=== PATIENT | female | born 1970 | race Caucasian/White ===

== ENCOUNTER 2018-04-30 13:20 | Emergency (ER) | payer MEDICARE, OTHER ==
[~2018-04-30] VITALS: Ht 157.5 cm; Wt 74.0 kg
[2018-04-30 14:02] LABS: BASOPHILS % (AUTO) 0.1 % (0-1); EOSINOPHILS % (AUTO) 0 % (0-6); HEMATOCRIT 45.3 % (35.0-45.0); HEMOGLOBIN 15.4 g/dl (12.0-16.0); LYMPHOCYTES # (AUTO) 1.3 X10'3 (1.1-4.8); LYMPHOCYTES % (AUTO) 9.6 % (21-51); MEAN CORPUSCULAR HEMOGLOBIN 31.1 PG (27.0-31.0); MEAN CORPUSCULAR VOLUME 91.5 FL (78-98); MEAN PLATELET VOLUME 7.7 FL (7.4-10.4); MONOCYTES # (AUTO) 0.2 X10'3 (0-0.9); MONOCYTES % (AUTO) 1.2 % (2-12); NEUTROPHILS # (AUTO) 11.9 X10'3 (1.8-7.7); NEUTROPHILS % (AUTO) 89.1 % (42-75); PLATELET COUNT 482 X10'3 (140-440); RED BLOOD COUNT 4.95 X10'6 (4.20-5.60); RED CELL DISTRIBUTION WIDTH 13.1 % (11.5-14.5); WHITE BLOOD COUNT 13.3 X10'3 (4.5-11.0)
[2018-04-30 14:09] LABS: ALANINE AMINOTRANSFERASE 46 U/L (12-78); ALBUMIN 4.7 G/DL (3.4-5.0); ALBUMIN/GLOBULIN RATIO 1.1 (1.1-1.5); ALKALINE PHOSPHATASE 57 IU/L (46-116); ANION GAP 20 (8-16); ASPARTATE AMINO TRANSFERASE 16 U/L (10-37); BLOOD UREA NITROGEN 11 MG/DL (7-18); BUN/CREATININE RATIO 9.9 (6.6-38.0); CALCIUM 9.6 MG/DL (8.5-10.1); CHLORIDE 102 MMOL/L (99-107); CREATININE 1.11 MG/DL (0.40-0.90); GLUCOSE 141 MG/DL (70-104); LIPASE 94 U/L (73-393); POTASSIUM 3.9 MMOL/L (3.5-5.1); PROTHROMBIN TIME 10.5 SECONDS (9.0-12.0); SODIUM 140 MMOL/L (135-145); TOTAL CARBON DIOXIDE 17.6 MMOL/L (24-32); TOTAL PROTEIN 8.8 G/DL (6.4-8.2); eGFR 52 ML/MIN
[2018-04-30] MEDS ORDERED: normal saline 1000ML IV soln IVB ONE (14:15)
[2018-04-30] MEDS ORDERED: proCHLORperazine 10 MG/2 ml inj IV ONE (14:15)
--- NOTE | 2018-04-30 14:35 | NUR ---
assumed care from sweetie BRANDON for lunch break
--- NOTE | 2018-04-30 14:50 | NUR ---
PT REPORTS HER HOME PO COMPAZINE DID NOT WORK, PT WAS AGREEABLE TO TAKE IV COMPAZINE, PT REPORTS 8/10 BACK PAIN, OMI LEIGH INFORMED, ORDERS TO FOLLOW.
[2018-04-30] MEDS ORDERED: morphine 4 MG/ML inj SYRINge IV ONE (15:05)
[2018-04-30] MEDS ORDERED: metoclopramide 5 mg/ml inj IV ONE (15:05)
--- NOTE | 2018-04-30 15:10 | NUR ---
PT IS SLEEPING, NO S/S OF DISTRESS OR DISCOMFORT, RESPIRATIONS SPONTENOUS, EVEN AND UNLABORED.
[2018-04-30] MEDS ORDERED: ONDA4TAB6 PO (15:24)
[2018-04-30] MEDS ORDERED: PROC25SU31 RC (15:24)
[2018-04-30 15:38] VITALS: BP 126/78
[2018-04-30 15:59] LABS: CLARITY,URINE CLEAR (Clear); COLOR,URINE YELLOW (Yellow); GLUCOSE, URINE NEGATIVE (Neg); KETONES,URINE >=80 mg/dl (Neg); LEUKOCYTE ESTERASE ,URINE NEGATIVE (Neg); NITRITES, URINE NEGATIVE (Neg); OCCULT BLOOD,URINE SMALL (Neg); PROTEIN,URINE 30 mg/dl (Neg); UROBILINOGEN,URINE 0.2 E.U/dL (0.2-1.0)
[2018-04-30 16:00] LABS: UA COLLECTION TYPE CLN CATCH MIDSTREAM; URINE HCG NEGATIVE (NEG)
[2018-04-30 16:13] LABS: BACTERIA,URINE FEW /HPF (Neg); MUCUS STRANDS FEW /LPF (Neg); SQUAMOUS EPITHELIAL CELL,UR FEW /LPF (FEW); WBC,URINE 0-4 /HPF (0-4)
== END 2018-04-30 15:47 | disposition home or self-care (01) ==
LOC: ER 13:21
DX: E86.0 Dehydration (principal); R11.2 Nausea with vomiting, unspecified; K21.9 Gastro-esophageal reflux disease without esophagitis; Z90.49 Acquired absence of other specified parts of digestive tract; Z88.2 Allergy status to sulfonamides; Z79.899 Other long term (current) drug therapy
CPT/HCPCS: 36415; 80053; 81001; 81025; 83690; 85025; 85610; 96361; 96374; 96375; 99283; J0780; J2270; J2765; J7030

== ENCOUNTER 2018-11-16 06:01 | Inpatient (IN) | payer OTHER, MEDICARE ==
[2018-11-16] VITALS (16 sets, daily range): BP systolic 113–134; BP diastolic 74–89
[~2018-11-16] VITALS: Ht 157.5 cm; Wt 64.0 kg
[~2018-11-16 06:01] MED LIST: ONDA4TAB6 PO
[2018-11-16] MEDS ORDERED: ondansetron/PF 4mg/2ml inj IV ONE ×2 (06:10→09:40)
[2018-11-16] MEDS ORDERED: normal saline 1000ML IV soln IVB ONE (06:10)
[2018-11-16] MEDS: morphine 4 MG/ML inj SYRINge IV PRN ×2 (06:24→07:07)
--- NOTE | 2018-11-16 06:29 | NUR ---
Patient ambulated to room with steady gait, at bedside. Patient hyperventilating due to pain. Coached patient in breathing techniquic, improvement noted.
[2018-11-16 06:40] LABS: BASOPHILS % (AUTO) 0.3 % (0-1); EOSINOPHILS % (AUTO) 0.1 % (0-6); HEMATOCRIT 43.9 % (35.0-45.0); HEMOGLOBIN 14.7 g/dl (12.0-16.0); LYMPHOCYTES # (AUTO) 0.8 X10'3 (1.1-4.8); LYMPHOCYTES % (AUTO) 5.8 % (21-51); MEAN CORPUSCULAR HEMOGLOBIN 28.8 PG (27.0-31.0); MEAN CORPUSCULAR HGB CONC 33.5 g/dL (33.0-36.5); MEAN CORPUSCULAR VOLUME 86.1 FL (78-98); MONOCYTES # (AUTO) 0.3 X10'3 (0-0.9); MONOCYTES % (AUTO) 2.4 % (2-12); NEUTROPHILS # (AUTO) 13.3 X10'3 (1.8-7.7); NEUTROPHILS % (AUTO) 91.4 % (42-75); PLATELET COUNT 391 X10'3 (140-440); RED CELL DISTRIBUTION WIDTH 14.9 % (11.5-14.5); WHITE BLOOD COUNT 14.5 X10'3 (4.5-11.0)
[2018-11-16 06:53] LABS: ALANINE AMINOTRANSFERASE 30 U/L (12-78); ALBUMIN 4.7 G/DL (3.4-5.0); ALBUMIN/GLOBULIN RATIO 1.1 (1.1-1.5); ALKALINE PHOSPHATASE 59 IU/L (46-116); ANION GAP 22 (8-16); ASPARTATE AMINO TRANSFERASE 16 U/L (10-37); BILIRUBIN,TOTAL 0.9 MG/DL (0.1-1.0); BLOOD UREA NITROGEN 10 MG/DL (7-18); BUN/CREATININE RATIO 10.1 (6.6-38.0); CALCIUM 9.4 MG/DL (8.5-10.1); CHLORIDE 103 MMOL/L (99-107); CREATININE 0.99 MG/DL (0.40-0.90); GLUCOSE 164 MG/DL (70-104); LIPASE 96 U/L (73-393); POTASSIUM 3.3 MMOL/L (3.5-5.1); SODIUM 140 MMOL/L (135-145); TOTAL PROTEIN 8.9 G/DL (6.4-8.2); eGFR 59 ML/MIN
[2018-11-16] MEDS ORDERED: proCHLORperazine 10 MG/2 ml inj IV ONE (06:55)
[2018-11-16] MEDS ORDERED: haloperidol lactate 5mg/ml inj IM ONE (07:00)
[2018-11-16] MEDS ORDERED: diphenhydrAMINE 50 mg/ml inj IV ONE (07:00)
--- NOTE | 2018-11-16 07:26 | NUR ---
After medication patient resting comfortable in bed, lights dimmed. Breathing rate improved, 16 breaths per min. at bedside. No other needs at this time.
[2018-11-16 07:53] LABS: GLUCOSE, URINE NEGATIVE (Neg); KETONES,URINE >=80 mg/dl (Neg); LEUKOCYTE ESTERASE ,URINE NEGATIVE (Neg); NITRITES, URINE NEGATIVE (Neg); OCCULT BLOOD,URINE LARGE (Neg); PH,URINE 8.5 (4.8-8.0); PROTEIN,URINE 30 mg/dl (Neg); URINE HCG NEGATIVE (NEG); UROBILINOGEN,URINE 0.2 E.U/dL (0.2-1.0)
[2018-11-16 07:54] LABS: UA COLLECTION TYPE CLN CATCH MIDSTREAM
[2018-11-16 07:55] LABS: CLARITY,URINE Cloudy (Clear); COLOR,URINE PINK (Yellow)
[2018-11-16 08:05] LABS: BACTERIA,URINE NONE SEEN /HPF (Neg); MUCUS STRANDS NONE SEEN /LPF (Neg); RBC,URINE TNTC /HPF (0-2); SQUAMOUS EPITHELIAL CELL,UR MODERATE /LPF (FEW)
--- NOTE | 2018-11-16 08:05 | NUR ---
Problems reprioritized. Patient report given, questions answered & plan of care reviewed with Roma RN.
--- NOTE | 2018-11-16 08:20 | NUR ---
Patient resting in bed, reports 6/10 sharp right abdominal pain. Denies any more nausea, tolerated PO fluids. Respirations even, 16 RR/min. no other needs at this time.
[2018-11-16] MEDS ORDERED: normal saline 1000ML IV soln IV ONE (09:30)
[2018-11-16] MEDS ORDERED: piperacillin/tazo 3.375gm/50ml 50 ML IV ONE (09:30)
[2018-11-16] MEDS ORDERED: ondansetron/PF 4mg/2ml inj IV PRN ×2 (09:35→19:45)
[2018-11-16] MEDS ORDERED: HYDROcodone/acetaminophen 10/325mg tab PO PRN (09:35)
[2018-11-16] MEDS ORDERED: magnesium Cl slow-release 64mg tablet PO PRN (09:35)
[2018-11-16] MEDS ORDERED: acetaminophen 325mg tablet PO PRN ×2 (09:35)
[2018-11-16] MEDS ORDERED: magnesium 2GM in 50ml NS 50 ML IV PRN (09:35)
[2018-11-16] MEDS ORDERED: HYDROmorphone 1 mg/ml syringe IV PRN (09:35)
[2018-11-16] MEDS ORDERED: magnesium hydroxide 30ml (MOM) UD suspension PO PRN (09:35)
[2018-11-16] MEDS ORDERED: HYDROmorphone inj. 0.5 MG/0.5 ML DISP.SYRIN IV PRN ×4 (09:35→19:45)
[2018-11-16] MEDS ORDERED: magnesium 4gm in 100ml NS 100 ML IV PRN (09:35)
[2018-11-16] MEDS ORDERED: potassium CL 10mEq/100ml bag 100 ML IV PRN ×2 (09:35)
[2018-11-16] MEDS ORDERED: mag hydrox/Alum hydrox/simeth 30ml oral suspension PO PRN (09:35)
[2018-11-16] MEDS ORDERED: potassium Cl 20 mEq SR tablet PO PRN ×2 (09:35)
[2018-11-16] MEDS ORDERED: HYDROcodone/acetaminophen 5mg/325mg tablet PO PRN (09:35)
[2018-11-16] MEDS ORDERED: cefepime 2gm inj IV STA (09:39)
[2018-11-16] MEDS ORDERED: morphine 4 MG/ML inj SYRINge IV PRN ×3 (09:40→19:45)
[2018-11-16] MEDS ORDERED: ZIPR80CA2 PO (09:44)
[2018-11-16] MEDS ORDERED: OMEP10SU2 PO (09:44)
[2018-11-16] MEDS ORDERED: QUET400T PO (09:44)
--- NOTE | 2018-11-16 09:54 | NUR ---
Patient NPO, appendicitis. Patient ETA to go to OR [id number].
[2018-11-16] MEDS ORDERED: CEFEPIME 2 GM in NS 100ml IV.SOLN 100 ML IV ONE (09:55)
[2018-11-16 10:02] LABS: PARTIAL THROMBOPLASTIN TIME 26 SECONDS (22-32)
[2018-11-16] MEDS: normal saline 1000ml 1,000 ML IV SCH ×2 (10:30→23:42)
--- NOTE | 2018-11-16 11:15 | NUR ---
Report received from ED RN
--- NOTE | 2018-11-16 11:25 | NUR ---
Pt arrived to room 344A from ED.
[2018-11-16] MEDS: K and/or MAG REPLACEMENT MC SCH (11:44)
[2018-11-16] MEDS ORDERED: potassium Cl 40MEQ/NS 500ml 500 ML IV ONE (11:55)
[2018-11-16] MEDS: HYDROmorphone 1 mg/ml syringe IV PRN ×3 (12:20→22:19)
[2018-11-16] MEDS ORDERED: cefepime 2g/NS 100ml ADVANTAGE 100 ML IV SCH (13:00)
[2018-11-16] MEDS ORDERED: ESCI5TAB PO (13:18)
[2018-11-16] MEDS ORDERED: ESTR1PAT77 TP (13:20)
[2018-11-16] MEDS ORDERED: ESTRADIOL 0.05 MG TD SCH (13:30)
[2018-11-16] MEDS ORDERED: Estradiol 0.025mg/day patch (1 per week) TD SCH (13:44)
[2018-11-16] MEDS ORDERED: HYDROmorphone 1 mg/ml syringe IV ONE (15:35)
[2018-11-16] MEDS ORDERED: cefepime 2gm inj IV SCH (16:00)
[2018-11-16] MEDS: cefepime 2g/NS 100ml ADVANTAGE 100 ML IV SCH ×2 (16:05→23:39)
[2018-11-16] MEDS ORDERED: BUPIVAcaine/PF 2.5mg/ml (0.25%) 10ml vial ONE (18:53)
[2018-11-16] MEDS ORDERED: neostigmine methylsulfate 1 MG/ML 10ml vial ONE ×2 (19:04→19:48)
[2018-11-16] MEDS ORDERED: sevoflurane 250ml liquid IH ONE (19:04)
[2018-11-16] MEDS ORDERED: midazolam 2 mg/2 ml injection ONE (19:12)
[2018-11-16] MEDS ORDERED: fentaNYL /PF 50mcg/ml 5ml ampule ONE (19:13)
[2018-11-16] MEDS ORDERED: ceFOXitin 2 GM ADDVANTGE BAG 50 ML IV ONE (19:25)
[2018-11-16] MEDS ORDERED: acetaminophen 1,000mg/100ml IV 100 ML IV PRN (19:45)
[2018-11-16] MEDS ORDERED: ringers solution, lacted 1,000 ML IV SCH (19:45)
[2018-11-16] MEDS ORDERED: ketorolac trometh. 30mg/ml inj. IV ONE (19:45)
[2018-11-16] MEDS ORDERED: ondansetron/PF 4mg/2ml inj ONE (19:48)
[2018-11-16] MEDS ORDERED: glycopyrrolate 0.2mg/ml inj ONE (19:48)
[2018-11-16] MEDS ORDERED: propofol inj 20 ML IV ONE (19:48)
[2018-11-16] MEDS ORDERED: dexamethasone sod phosphate 4mg/ml inj. ONE (19:48)
[2018-11-16] MEDS ORDERED: rocuronium 10mg/ml inj IV ONE (19:48)
--- NOTE | 2018-11-16 20:05 | NUR ---
ADMITTED TO PACU FROM OR ACCOMPANIED BY ANESTHESIA. INTIAL PHYSICAL ASSESSMENT DONE AND RECORDED. AWAKE AND RESPONSE ON ARRIVE YO PACU, REPORT RECEIVED FROM ANESTHESIA.
[2018-11-16] MEDS ORDERED: non-formulary drug (Ziprasidone Hcl (Geodon) 1 CAP) PO SCH (21:00)
[2018-11-16] MEDS ORDERED: QUETIAPINE FUMARATE PO SCH (21:00)
[2018-11-16] MEDS ORDERED: ziprasidone 20mg capsule PO SCH (21:00)
[2018-11-16] MEDS ORDERED: pantoprazole 40mg Tablet.DR PO SCH (21:00)
[2018-11-16] MEDS ORDERED: temazepam 15mg capsule PO PRN (21:00)
[2018-11-16] MEDS ORDERED: quetiapine 100mg tablet PO SCH (21:00)
--- NOTE | 2018-11-16 21:00 | NUR ---
PACU DISCHARGE CRITERIA MET, REPORT GIVEN TO FLOOR. DENIES PAIN OR DISCOMFORT, TRANSFERRED TO ROOM IN STABLE GOOD CONDITION.
[2018-11-16] MEDS: lactobacillus rhamnosus 10,000 MMU CELLS/CAPSULE PO SCH (22:19)
--- NOTE | 2018-11-16 23:40 | NUR ---
call placed to Dr Hdez earlier (pt states she takes seroquel 800mg q HS; states if she only takes 400mg as ordered, she will not be able to sleep); called again & informed; denied pt's request to increasing dose
[2018-11-17] VITALS: BP 123/80
[2018-11-17 00:45] VITALS: BP 123/80
[2018-11-17] MEDS: HYDROmorphone 1 mg/ml syringe IV PRN ×2 (02:37→08:13)
[2018-11-17 04:00] VITALS: BP 115/73
[2018-11-17 05:46] LABS: BASOPHILS % (AUTO) 0.1 % (0-1); EOSINOPHILS % (AUTO) 0 % (0-6); HEMATOCRIT 35.4 % (35.0-45.0); LYMPHOCYTES # (AUTO) 0.5 X10'3 (1.1-4.8); LYMPHOCYTES % (AUTO) 3.7 % (21-51); MEAN CORPUSCULAR HEMOGLOBIN 30.1 PG (27.0-31.0); MEAN CORPUSCULAR HGB CONC 33.8 g/dL (33.0-36.5); MEAN PLATELET VOLUME 8.1 FL (7.4-10.4); MONOCYTES # (AUTO) 0.5 X10'3 (0-0.9); MONOCYTES % (AUTO) 3.6 % (2-12); NEUTROPHILS % (AUTO) 92.6 % (42-75); PLATELET COUNT 301 X10'3 (140-440); RED BLOOD COUNT 3.98 X10'6 (4.20-5.60); RED CELL DISTRIBUTION WIDTH 14.7 % (11.5-14.5); WHITE BLOOD COUNT 14.1 X10'3 (4.5-11.0)
[2018-11-17 05:50] LABS: ALBUMIN 3.3 G/DL (3.4-5.0); ANION GAP 9 (8-16); BLOOD UREA NITROGEN 5 MG/DL (7-18); BUN/CREATININE RATIO 7.9 (6.6-38.0); CALCIUM 8.6 MG/DL (8.5-10.1); CHLORIDE 109 MMOL/L (99-107); CREATININE 0.63 MG/DL (0.40-0.90); GLUCOSE 130 MG/DL (70-104); MAGNESIUM 2.4 MG/DL (1.5-2.4); PHOSPHORUS 3.3 MG/DL (2.3-4.5); POTASSIUM 4.3 MMOL/L (3.5-5.1); SODIUM 141 MMOL/L (135-145); TOTAL CARBON DIOXIDE 22.6 MMOL/L (24-32); eGFR > 90 ML/MIN
[2018-11-17] MEDS ORDERED: quetiapine 100mg tablet PO SCH (06:47)
[2018-11-17 07:00] VITALS: BP 108/66
[2018-11-17] MEDS ORDERED: ESCITALOPRAM OXALATE PO SCH (08:00)
[2018-11-17] MEDS: K and/or MAG REPLACEMENT MC SCH (08:00)
[2018-11-17] MEDS ORDERED: citalopram 20mg tablet PO SCH (08:00)
[2018-11-17] MEDS: cefepime 2g/NS 100ml ADVANTAGE 100 ML IV SCH (08:12)
[2018-11-17] MEDS: normal saline 1000ml 1,000 ML IV SCH (08:12)
[2018-11-17] MEDS: lactobacillus rhamnosus 10,000 MMU CELLS/CAPSULE PO SCH (08:13)
--- NOTE | 2018-11-17 09:52 | NUR ---
MD Brenner in room rounding on pt. New order to advance diet as tolerated. pt. states she has passed gas while ambulating. No BM at this time.
[2018-11-17 12:00] VITALS: BP 126/78
[2018-11-17] MEDS ORDERED: HYDR-4383 PO (14:34)
[2018-11-17] MEDS ORDERED: ONDA4TAB6 PO (14:34)
[2018-11-17] MEDS ORDERED: CITALOpram 10mg tablet PO SCH (15:08)
[2018-11-17] MEDS ORDERED: CIPR-230 PO (15:10)
--- NOTE | 2018-11-17 15:30 | NUR ---
PT. DISCHARGED IN A STABLE CONDITION. REVIEWED DISCHARGE PAPERWORK WITH PT. SHE IS ARE OF WOUND CARE, MEDICATIONS, WEIGHT RESTRICTIONS, AND WHEN TO RETURN TO ER IF NEEDED. SHE IS AWARE TO MAKE A F/U IKE. WITH MD GAMBOA OFFICE AND WAS PROVIDED CONTACT INFORMATION. PT. DENIES NAUSEA OR VOMITING BUT STATES IT IS DIFFICULT TO PASS GAS. RECOMMENDED LIQUID DIET AND FREQUENT EXERCISE. PAIN PRESCRIPTION PHYSICAL HANDED TO PT. AND ANTIBIOTIC AND ZOFRAN CALLED INTO [facility] IN [place]. PT. 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 IV DC'D, PRESSURE BANDAGE APPLIED, NO S/SX BLEEDING NOTED. ESCORTED IN A W/C OUT OF THE BUILDING BY HOSPITAL STAFF MEMBER AND THREE FAMILY MEMBERS TO A PRIVATE VEHICLE TO RETURN HOME. ID WRISTBAND REMOVED BEFORE DISCHARGE.
== END 2018-11-17 16:05 | disposition home or self-care (01) | DRG 854 ==
LOC: ER 06:03 → SUR 3N 11:20 → CMPBEDREQ 15:16
PROVIDERS: ADMIT Family Medicine; ATTEND Internal Medicine
PROC: 0DTJ4ZZ Resection of Appendix, Percutaneous Endoscopic Approach (ICD-10-PCS; principal; 2018-11-16 19:04)
DX: A41.9 Sepsis, unspecified organism (principal); K35.80 Unspecified acute appendicitis; E87.2 Acidosis; F30.9 Manic episode, unspecified; E78.5 Hyperlipidemia, unspecified; I10 Essential (primary) hypertension; K21.9 Gastro-esophageal reflux disease without esophagitis; M54.9 Dorsalgia, unspecified; R00.0 Tachycardia, unspecified; G89.29 Other chronic pain; Z88.0 Allergy status to penicillin; Z88.2 Allergy status to sulfonamides; Z88.6 Allergy status to analgesic agent; Z90.49 Acquired absence of other specified parts of digestive tract; Z79.899 Other long term (current) drug therapy
CPT/HCPCS: 96365; 96372; 96375; 96376; 99285; Z7506; Z7508; 36415; 71045; 74176; 80048; 80053; 81001; 81025; 82948; 83690; 83735; 84100; 84439; 84443; 85025; 85610; 85730; 87081; 87088; A4215; A4618; A7000; G0378; J0692; J0694; J0780; J1100; J1170; J1200; J1630; J1885; J2250; J2270; J2405; J2704; J2710; J3010; J3480; J3490; J7030; J7120

== ENCOUNTER 2018-12-13 07:18 | Emergency (ER) | payer OTHER, MEDICARE ==
[~2018-12-13] VITALS: Ht 157.5 cm; Wt 65.0 kg
[~2018-12-13 07:18] MED LIST changes: +CIPR-230 PO; +ESCI5TAB PO; +ESTR1PAT77 TP; +HYDR-4383 PO; +OMEP10SU2 PO; +QUET400T PO; +ZIPR80CA2 PO
[2018-12-13 08:23] LABS: BASOPHILS % (AUTO) 0.1 % (0-1); EOSINOPHILS % (AUTO) 0.1 % (0-6); HEMATOCRIT 43.4 % (35.0-45.0); HEMOGLOBIN 14.6 g/dl (12.0-16.0); LYMPHOCYTES # (AUTO) 0.5 X10'3 (1.1-4.8); LYMPHOCYTES % (AUTO) 5.1 % (21-51); MEAN CORPUSCULAR HEMOGLOBIN 29.7 PG (27.0-31.0); MEAN CORPUSCULAR HGB CONC 33.5 g/dL (33.0-36.5); MEAN CORPUSCULAR VOLUME 88.5 FL (78-98); MEAN PLATELET VOLUME 7.9 FL (7.4-10.4); MONOCYTES # (AUTO) 0.3 X10'3 (0-0.9); MONOCYTES % (AUTO) 2.8 % (2-12); NEUTROPHILS # (AUTO) 9.2 X10'3 (1.8-7.7); NEUTROPHILS % (AUTO) 91.9 % (42-75); PLATELET COUNT 314 X10'3 (140-440); RED CELL DISTRIBUTION WIDTH 15.3 % (11.5-14.5)
[2018-12-13 08:28] LABS: CLARITY,URINE CLEAR (Clear); COLOR,URINE YELLOW (Yellow); GLUCOSE, URINE NEGATIVE (Neg); KETONES,URINE 40 mg/dl (Neg); LEUKOCYTE ESTERASE ,URINE NEGATIVE (Neg); NITRITES, URINE NEGATIVE (Neg); OCCULT BLOOD,URINE NEGATIVE (Neg); PH,URINE 8.5 (4.8-8.0); PROTEIN,URINE 30 mg/dl (Neg); UROBILINOGEN,URINE 0.2 E.U/dL (0.2-1.0)
[2018-12-13 08:30] LABS: UA COLLECTION TYPE CLN CATCH MIDSTREAM
[2018-12-13 08:34] LABS: BACTERIA,URINE 1+ /HPF (Neg); MUCUS STRANDS NONE SEEN /LPF (Neg); RBC,URINE 0-2 /HPF (0-2); SQUAMOUS EPITHELIAL CELL,UR MODERATE /LPF (FEW); WBC,URINE 0-4 /HPF (0-4)
[2018-12-13] MEDS ORDERED: normal saline 1000ML IV soln IVB ONE (08:35)
[2018-12-13 08:37] LABS: URINE HCG NEGATIVE (NEG)
[2018-12-13 08:39] LABS: ALANINE AMINOTRANSFERASE 32 U/L (12-78); ALBUMIN 4.3 G/DL (3.4-5.0); ALKALINE PHOSPHATASE 59 IU/L (46-116); ANION GAP 17 (8-16); ASPARTATE AMINO TRANSFERASE 15 U/L (10-37); BLOOD UREA NITROGEN 12 MG/DL (7-18); BUN/CREATININE RATIO 10.6 (6.6-38.0); CALCIUM 9.2 MG/DL (8.5-10.1); CHLORIDE 105 MMOL/L (99-107); CREATININE 1.13 MG/DL (0.40-0.90); GLUCOSE 152 MG/DL (70-104); POTASSIUM 3.8 MMOL/L (3.5-5.1); SODIUM 141 MMOL/L (135-145); TOTAL CARBON DIOXIDE 19.3 MMOL/L (24-32); TOTAL PROTEIN 8.5 G/DL (6.4-8.2); eGFR 51 ML/MIN
[2018-12-13] MEDS ORDERED: dexamethasone sod phosphate 10mg/ml inj IV STA (08:56)
[2018-12-13] MEDS ORDERED: proCHLORperazine 10 MG/2 ml inj IV ONE (09:00)
[2018-12-13 09:37] LABS: URINE AMPHETAMINE SCREEN NEGATIVE (Neg); URINE BARBITUATE SCREEN NEGATIVE (Neg); URINE BENZODIAZEPINES SCREEN NEGATIVE (Neg); URINE CANNABINOID SCREEN POSITIVE (Neg); URINE COCAINE SCREEN NEGATIVE (Neg); URINE METHADONE SCREEN NEGATIVE (Neg); URINE OPIATE SCREEN NEGATIVE (Neg); URINE PHENCYCLIDINE SCREEN NEGATIVE (Neg)
[2018-12-13 09:54] LABS: LIPASE 134 U/L (73-393)
[2018-12-13 10:05] VITALS: BP 170/80
[2018-12-13] MEDS ORDERED: ONDA8TAB6 PO (10:05)
== END 2018-12-13 10:10 | disposition home or self-care (01) ==
LOC: ER 07:19
DX: R11.2 Nausea with vomiting, unspecified (principal); R10.12 Left upper quadrant pain; F12.10 Cannabis abuse, uncomplicated; K21.9 Gastro-esophageal reflux disease without esophagitis; G89.29 Other chronic pain; Z88.6 Allergy status to analgesic agent; Z88.0 Allergy status to penicillin; Z88.2 Allergy status to sulfonamides; Z79.899 Other long term (current) drug therapy; Z79.2 Long term (current) use of antibiotics; Z87.19 Personal history of other diseases of the digestive system; Z90.49 Acquired absence of other specified parts of digestive tract
CPT/HCPCS: 36415; 80053; 80305; 81001; 81025; 83690; 85025; 85610; 96361; 96374; 96375; 99283; J0780; J1100; J7030

== ENCOUNTER 2019-10-01 16:38 | Inpatient (IN) | payer OTHER, MEDICARE ==
[2019-10-01] VITALS (15 sets, daily range): BP systolic 122–156; BP diastolic 65–104
[~2019-10-01] VITALS: Ht 157.5 cm; Wt 75.6 kg
[2019-10-01] MEDS: K, MAG and/or Phos replacement - Verify level? MC SCH (08:00)
[2019-10-01] MEDS: pantoprazole 40 MG vial IV SCH (08:00)
[~2019-10-01 16:38] MED LIST changes: +ONDA8TAB6 PO; +normal saline 50 ML solution ONE
--- NOTE | 2019-10-01 16:55 | NUR ---
TELE NEURO INITIATED
--- NOTE | 2019-10-01 16:59 | NUR ---
1659 Activase bolus 6.1ml given Acitvase infustion 55.3ml started 1700 Waste 38.6ml activase 1758 NS 50ml started to flush line- Pt stated "feeling better and less confused", better ROM to left arm and leg. Addendum: 10/01/19 at 1811 by [email or web address] 1711 ACTIVACE BOLUS GIVEN INFUSION STARTED 3723
[2019-10-01 17:00] LABS: BASOPHILS % (AUTO) 0.3 % (0-1); EOSINOPHILS # (AUTO) 0.1 X10'3 (0-0.9); EOSINOPHILS % (AUTO) 1.6 % (0-6); HEMATOCRIT 41.9 % (35.0-45.0); HEMOGLOBIN 14.1 g/dl (12.0-16.0); LYMPHOCYTES # (AUTO) 5.1 X10'3 (1.1-4.8); LYMPHOCYTES % (AUTO) 53.9 % (21-51); MEAN CORPUSCULAR HEMOGLOBIN 30.9 PG (27.0-31.0); MEAN CORPUSCULAR HGB CONC 33.7 g/dL (33.0-36.5); MEAN CORPUSCULAR VOLUME 91.7 FL (78-98); MEAN PLATELET VOLUME 7.4 FL (7.4-10.4); MONOCYTES # (AUTO) 0.4 X10'3 (0-0.9); MONOCYTES % (AUTO) 4.4 % (2-12); NEUTROPHILS # (AUTO) 3.7 X10'3 (1.8-7.7); NEUTROPHILS % (AUTO) 39.8 % (42-75); PLATELET COUNT 388 X10'3 (140-440); RED BLOOD COUNT 4.57 X10'6 (4.20-5.60); RED CELL DISTRIBUTION WIDTH 13.3 % (11.5-14.5); WHITE BLOOD COUNT 9.4 X10'3 (4.5-11.0)
--- NOTE | 2019-10-01 17:05 | NUR ---
arrived to bed 16, stroke alert in progress, pt is back from CT. Telemed consult complete. neurologist recommends tPA. NIHSS 9, with left side weakness.
[2019-10-01 17:08] LABS: PARTIAL THROMBOPLASTIN TIME 26 SECONDS (22-32)
[2019-10-01 17:09] LABS: ALANINE AMINOTRANSFERASE 40 U/L (12-78); ALBUMIN 4.2 G/DL (3.4-5.0); ALBUMIN/GLOBULIN RATIO 1.2 (1.1-1.5); ALKALINE PHOSPHATASE 46 IU/L (46-116); ANION GAP 12 (8-16); ASPARTATE AMINO TRANSFERASE 15 U/L (10-37); BILIRUBIN,TOTAL 0.2 MG/DL (0.1-1.0); BLOOD UREA NITROGEN 10 MG/DL (7-18); BUN/CREATININE RATIO 9.8 (6.6-38.0); CALCIUM 8.9 MG/DL (8.5-10.1); CHLORIDE 104 MMOL/L (99-107); CREATININE 1.02 MG/DL (0.40-0.90); GLUCOSE 97 MG/DL (70-104); POTASSIUM 3.7 MMOL/L (3.5-5.1); SODIUM 139 MMOL/L (135-145); TOTAL CARBON DIOXIDE 22.8 MMOL/L (24-32); TOTAL PROTEIN 7.7 G/DL (6.4-8.2); eGFR 57 ML/MIN
--- NOTE | 2019-10-01 17:12 | NUR ---
IV actvase mixed with weight 150lb. bous admin over 1 min followed by drip.
--- NOTE | 2019-10-01 17:17 | NUR ---
Tpa started at this time.Stroke RN Kaelyn at bedside.
[2019-10-01] MEDS ORDERED: alteplase 100MG inj. 100 ML IV ONE (17:25)
[2019-10-01] MEDS ORDERED: TIZA4CAP PO (17:29)
[2019-10-01] MEDS ORDERED: ZIPR80CA10 PO (17:29)
[2019-10-01] MEDS ORDERED: LISI20TA PO (17:29)
[2019-10-01] MEDS ORDERED: OMEP-50 PO (17:29)
[2019-10-01] MEDS ORDERED: QUET200T30 PO (17:29)
[2019-10-01] MEDS ORDERED: MAGN500C16 PO (17:30)
[2019-10-01] MEDS ORDERED: LISI10TA4 PO (17:30)
[2019-10-01] MEDS ORDERED: ASPI-803 PEG (17:30)
--- NOTE | 2019-10-01 17:33 | NUR ---
to CT for CTA head and neck, tpa infusing, vs monitored.
[2019-10-01] MEDS ORDERED: iohexol 350MG/ML 100ml bottle IV ONE (17:35)
--- NOTE | 2019-10-01 17:37 | NUR ---
pt out to ct with rn via chon
--- NOTE | 2019-10-01 17:45 | NUR ---
Return from CT, pt is clearer in her thoughts, speaking more fluently. moving left arm leg, still slight numbness to left arm face.
[2019-10-01 18:09] LABS: CLARITY,URINE CLEAR (Clear); COLOR,URINE YELLOW (Yellow); GLUCOSE, URINE NEGATIVE (Neg); KETONES,URINE TRACE mg/dl (Neg); LEUKOCYTE ESTERASE ,URINE NEGATIVE (Neg); NITRITES, URINE NEGATIVE (Neg); OCCULT BLOOD,URINE NEGATIVE (Neg); PH,URINE 7.5 (4.8-8.0); PROTEIN,URINE NEGATIVE (Neg); UROBILINOGEN,URINE 0.2 E.U/dL (0.2-1.0)
[2019-10-01 18:10] LABS: UA COLLECTION TYPE STRAIGHT CATH
--- NOTE | 2019-10-01 18:21 | NUR ---
Continue to improve, nihss now 2.
[2019-10-01 18:26] LABS: URINE AMPHETAMINE SCREEN NEGATIVE (Neg); URINE BARBITUATE SCREEN NEGATIVE (Neg); URINE BENZODIAZEPINES SCREEN NEGATIVE (Neg); URINE CANNABINOID SCREEN POSITIVE (Neg); URINE COCAINE SCREEN NEGATIVE (Neg); URINE METHADONE SCREEN NEGATIVE (Neg); URINE OPIATE SCREEN NEGATIVE (Neg); URINE PHENCYCLIDINE SCREEN NEGATIVE (Neg)
--- NOTE | 2019-10-01 18:45 | NUR ---
pt continues to do well, "feels so much better" only finding at this time is tingling to left side of face, with feeling of weakness to left face, no droop noted. up to BSC to void, feels generally a bit weak.
[2019-10-01] MEDS ORDERED: proCHLORperazine 10 MG/2 ml inj IV PRN (18:55)
[2019-10-01] MEDS ORDERED: Neutra Phos packet PO PRN (18:55)
[2019-10-01] MEDS ORDERED: magnesium Cl slow-release 64mg tablet PO PRN (18:55)
[2019-10-01] MEDS ORDERED: sodium phosphate inj. 15 MMOL in dextrose 5%-water 245 ML IV PRN (18:55)
[2019-10-01] MEDS ORDERED: magnesium 4gm in 100ml NS 100 ML IV PRN (18:55)
[2019-10-01] MEDS ORDERED: potassium Cl 20 mEq SR tablet PO PRN ×2 (18:55)
[2019-10-01] MEDS ORDERED: acetaminophen 325mg tablet PO PRN ×2 (18:55)
[2019-10-01] MEDS ORDERED: sodium phosphate inj. 30 MMOL in dextrose 5%-water 240 ML IV PRN (18:55)
[2019-10-01] MEDS ORDERED: magnesium 2GM in 50ml NS 50 ML IV PRN (18:55)
[2019-10-01] MEDS ORDERED: magnesium hydroxide 30ml (MOM) UD suspension PO PRN (18:55)
[2019-10-01] MEDS ORDERED: ondansetron/PF 4mg/2ml inj IV PRN (18:55)
[2019-10-01] MEDS ORDERED: cyclobenzaprine 10mg tablet PO PRN (19:20)
[2019-10-01] MEDS: docusate sod 100mg capsule PO SCH (20:00)
--- NOTE | 2019-10-01 21:30 | NUR ---
Patient arrived to ICU bed 2044 via gurney from ER. Patient moved to bed via slide board, placed on engine monitor and vial signs assessed. Patient on room air, without compliant of pain. Patient c/o numbness and tingling to left side of face and left ear. Report from Romeo BRANDON.
[2019-10-01] MEDS: quetiapine 100mg tablet PO SCH (22:31)
[2019-10-02] VITALS (30 sets, daily range): BP systolic 106–144; BP diastolic 62–89
--- NOTE | 2019-10-02 | NUR ---
Patient resting in bed, has been up to use bedside commode with minimal assist needed by staff. Patient denies any pain or discomfort. Patient with compliant of numbness and tingling to left side of face at nose down to corner of mouth and to left ear.
[2019-10-02] MEDS ORDERED: ziprasidone 20mg capsule PO SCH ×3 (00:20→21:00)
[2019-10-02 05:58] LABS: PARTIAL THROMBOPLASTIN TIME 26 SECONDS (22-32)
[2019-10-02 06:02] LABS: BASOPHILS % (AUTO) 0.6 % (0-1); EOSINOPHILS # (AUTO) 0.1 X10'3 (0-0.9); EOSINOPHILS % (AUTO) 2.1 % (0-6); HEMOGLOBIN 13.5 g/dl (12.0-16.0); LYMPHOCYTES % (AUTO) 57.3 % (21-51); MEAN CORPUSCULAR HGB CONC 33.9 g/dL (33.0-36.5); MEAN CORPUSCULAR VOLUME 91.5 FL (78-98); MEAN PLATELET VOLUME 7.5 FL (7.4-10.4); MONOCYTES # (AUTO) 0.4 X10'3 (0-0.9); MONOCYTES % (AUTO) 5.3 % (2-12); NEUTROPHILS # (AUTO) 2.4 X10'3 (1.8-7.7); NEUTROPHILS % (AUTO) 34.7 % (42-75); PLATELET COUNT 350 X10'3 (140-440); RED BLOOD COUNT 4.37 X10'6 (4.20-5.60); RED CELL DISTRIBUTION WIDTH 13.1 % (11.5-14.5); WHITE BLOOD COUNT 7.1 X10'3 (4.5-11.0)
[2019-10-02 06:03] LABS: ALANINE AMINOTRANSFERASE 37 U/L (12-78); ALBUMIN 3.8 G/DL (3.4-5.0); ALKALINE PHOSPHATASE 42 IU/L (46-116); ANION GAP 11 (8-16); ASPARTATE AMINO TRANSFERASE 19 U/L (10-37); BILIRUBIN,TOTAL 0.6 MG/DL (0.1-1.0); BLOOD UREA NITROGEN 9 MG/DL (7-18); BUN/CREATININE RATIO 9.7 (6.6-38.0); CALCIUM 8.5 MG/DL (8.5-10.1); CHLORIDE 106 MMOL/L (99-107); CREATININE 0.93 MG/DL (0.40-0.90); GLUCOSE 94 MG/DL (70-104); MAGNESIUM 2.3 MG/DL (1.5-2.4); PHOSPHORUS 3.6 MG/DL (2.3-4.5); POTASSIUM 3.6 MMOL/L (3.5-5.1); SODIUM 140 MMOL/L (135-145); TOTAL PROTEIN 7.5 G/DL (6.4-8.2); eGFR 64 ML/MIN
--- NOTE | 2019-10-02 06:28 | NUR ---
Problems reprioritized. Patient report given, questions answered & plan of care reviewed with ROMA Tao.
--- NOTE | 2019-10-02 06:38 | NUR ---
Patient in room ICU 2044. I have received report from Liliam BRANDON and had the opportunity to ask questions and assume patient care.
[2019-10-02] MEDS: K, MAG and/or Phos replacement - Verify level? MC SCH (07:25)
[2019-10-02] MEDS ORDERED: magnesium oxide 400mg tablet PO SCH ×2 (08:00→19:51)
[2019-10-02] MEDS: lisinopril 10 MG tablet PO SCH (09:23)
[2019-10-02] MEDS: docusate sod 100mg capsule PO SCH ×2 (09:23→19:43)
[2019-10-02] MEDS: pantoprazole 40 MG vial IV SCH (09:23)
[2019-10-02 12:25] LABS: HEMOGLOBIN A1C 5.4 % (4.5-6.2)
--- NOTE | 2019-10-02 18:30 | NUR ---
Patient in room ORTHO 4009. I have received report from Dinh BRANDON and had the opportunity to ask questions and assume patient care.
--- NOTE | 2019-10-02 18:45 | NUR ---
Patient in room ORTHO 4009. I have received report from Anastasiia BRANDON and had the opportunity to ask questions and assume patient care.
--- NOTE | 2019-10-02 19:00 | NUR ---
Report called to receiving nurse Ita. Transferred via wheel chair Belongings . Special Issues communicated to receiving nurse.
[2019-10-02] MEDS: quetiapine 100mg tablet PO SCH (20:45)
[2019-10-03 00:58] VITALS: BP 103/60
[2019-10-03 05:00] VITALS: BP 103/64
[2019-10-03 05:50] LABS: PARTIAL THROMBOPLASTIN TIME 27 SECONDS (22-32)
[2019-10-03 06:00] VITALS: BP 103/64
[2019-10-03 06:08] LABS: ALANINE AMINOTRANSFERASE 34 U/L (12-78); ALBUMIN 3.9 G/DL (3.4-5.0); ALBUMIN/GLOBULIN RATIO 1.2 (1.1-1.5); ALKALINE PHOSPHATASE 44 IU/L (46-116); ANION GAP 13 (8-16); ASPARTATE AMINO TRANSFERASE 16 U/L (10-37); BILIRUBIN,TOTAL 0.6 MG/DL (0.1-1.0); BLOOD UREA NITROGEN 10 MG/DL (7-18); BUN/CREATININE RATIO 10.8 (6.6-38.0); CALCIUM 8.6 MG/DL (8.5-10.1); CHLORIDE 105 MMOL/L (99-107); CHOL/HDL RATIO 5.3 (0.00-4.99); CHOLESTEROL 205 MG/DL (0-200); CREATININE 0.93 MG/DL (0.40-0.90); GLUCOSE 100 MG/DL (70-104); HDL CHOLESTEROL 39 MG/DL (35-60); LDL CHOLESTEROL 118 MG/DL (50-100); MAGNESIUM 2.5 MG/DL (1.5-2.4); PHOSPHORUS 4.1 MG/DL (2.3-4.5); POTASSIUM 3.7 MMOL/L (3.5-5.1); SODIUM 140 MMOL/L (135-145); TOTAL CARBON DIOXIDE 22.2 MMOL/L (24-32); TOTAL PROTEIN 7.2 G/DL (6.4-8.2); TRIGLYCERIDES 314 MG/DL (20-135); eGFR 64 ML/MIN
[2019-10-03 06:12] LABS: BASOPHILS % (AUTO) 0.5 % (0-1); EOSINOPHILS # (AUTO) 0.1 X10'3 (0-0.9); EOSINOPHILS % (AUTO) 2.2 % (0-6); HEMATOCRIT 41.4 % (35.0-45.0); HEMOGLOBIN 13.9 g/dl (12.0-16.0); LYMPHOCYTES # (AUTO) 2.8 X10'3 (1.1-4.8); LYMPHOCYTES % (AUTO) 44.6 % (21-51); MEAN CORPUSCULAR HGB CONC 33.6 g/dL (33.0-36.5); MEAN CORPUSCULAR VOLUME 92.2 FL (78-98); MEAN PLATELET VOLUME 7.4 FL (7.4-10.4); MONOCYTES # (AUTO) 0.4 X10'3 (0-0.9); MONOCYTES % (AUTO) 6.3 % (2-12); NEUTROPHILS # (AUTO) 2.9 X10'3 (1.8-7.7); NEUTROPHILS % (AUTO) 46.4 % (42-75); PLATELET COUNT 325 X10'3 (140-440); RED BLOOD COUNT 4.49 X10'6 (4.20-5.60); RED CELL DISTRIBUTION WIDTH 13.1 % (11.5-14.5); WHITE BLOOD COUNT 6.2 X10'3 (4.5-11.0)
--- NOTE | 2019-10-03 06:30 | NUR ---
Problems reprioritized. Patient report given, questions answered & plan of care reviewed with Julia RN.
--- NOTE | 2019-10-03 06:30 | NUR ---
Patient in room ORTHO 4009. I have received report from ROMA Faust and had the opportunity to ask questions and assume patient care.
[2019-10-03] MEDS: K, MAG and/or Phos replacement - Verify level? MC SCH (07:24)
[2019-10-03] MEDS ORDERED: pantoprazole 40mg Tablet.DR PO SCH (07:30)
[2019-10-03] MEDS ORDERED: aspirin 81mg tab.chew PO SCH (08:30)
[2019-10-03] MEDS: docusate sod 100mg capsule PO SCH ×2 (09:47→09:54)
[2019-10-03] MEDS: lisinopril 10 MG tablet PO SCH (09:48)
[2019-10-03 10:00] VITALS: BP 116/74
--- NOTE | 2019-10-03 12:15 | NUR ---
DC inst provided to pt & pt's . IV DC'd, tip intact. All belongings sent w/pt. WC to front lobby.
== END 2019-10-03 12:10 | disposition home or self-care (01) | DRG 63 ==
LOC: ER 16:39 → ED HOLD 18:52 → ICU 2S 21:42 → ORTHO 4S 10-02 19:00
PROC: 3E03317 Introduction of Other Thrombolytic into Peripheral Vein, Percutaneous Approach (ICD-10-PCS; principal; 2019-10-01)
PROC: B3251ZZ Computerized Tomography (CT Scan) of Bilateral Common Carotid Arteries using Low Osmolar Contrast (ICD-10-PCS; 2019-10-01)
PROC: B32G1ZZ Computerized Tomography (CT Scan) of Bilateral Vertebral Arteries using Low Osmolar Contrast (ICD-10-PCS; 2019-10-01)
PROC: B3281ZZ Computerized Tomography (CT Scan) of Bilateral Internal Carotid Arteries using Low Osmolar Contrast (ICD-10-PCS; 2019-10-01)
DX: I63.9 Cerebral infarction, unspecified (principal); E78.5 Hyperlipidemia, unspecified; I10 Essential (primary) hypertension; M19.072 Primary osteoarthritis, left ankle and foot; M19.071 Primary osteoarthritis, right ankle and foot; G89.29 Other chronic pain; G43.109 Migraine with aura, not intractable, without status migrainosus; F44.9 Dissociative and conversion disorder, unspecified; K21.9 Gastro-esophageal reflux disease without esophagitis; M54.9 Dorsalgia, unspecified; R29.712 NIHSS score 12; Z90.49 Acquired absence of other specified parts of digestive tract; Z88.5 Allergy status to narcotic agent; Z88.2 Allergy status to sulfonamides; Z88.0 Allergy status to penicillin; Z79.899 Other long term (current) drug therapy
CPT/HCPCS: 36415; 70450; 70496; 70498; 70551; 71045; 80053; 80061; 80305; 81003; 83036; 83735; 84100; 85025; 85610; 85730; 86885; 86900; 86901; 87081; 93005; 93306; 97161; 97530; 99291; C9113; G0378; J2997; Q9967

== ENCOUNTER 2020-01-31 13:59 | Inpatient (IN) | payer MEDICARE, OTHER ==
[~2020-01-31] VITALS: Ht 157.5 cm; Wt 71.4 kg
[~2020-01-31 13:59] MED LIST changes: -CIPR-230 PO; +ESCI20TA45 PO; -ESCI5TAB PO; -ESTR1PAT77 TP; -HYDR-4383 PO; +METF-438 PO; -OMEP10SU2 PO; -ONDA4TAB6 PO; -ONDA8TAB6 PO; +PANT-47 PO; -QUET400T PO; +TOPI25TA49 PO; -ZIPR80CA2 PO; -normal saline 50 ML solution ONE
--- NOTE | 2020-01-31 14:18 | NUR ---
EKG performed, Dr. Gan notified of patient and condition.
[2020-01-31] MEDS ORDERED: LORazepam 2 mg/ml vial IV ONE (14:20)
[2020-01-31] MEDS ORDERED: ondansetron/PF 4mg/2ml inj IV ONE (14:20)
[2020-01-31] MEDS ORDERED: normal saline 1000ML IV soln IVB ONE ×2 (14:20→15:10)
[2020-01-31] MEDS ORDERED: diphenhydrAMINE 50 mg/ml inj IV ONE (14:20)
[2020-01-31] MEDS ORDERED: haloperidol lactate 5mg/ml inj IM ONE (14:20)
[2020-01-31 14:30] LABS: BASOPHILS # (AUTO) 0.1 X10'3 (0-0.2); BASOPHILS % (AUTO) 0.4 % (0-1); EOSINOPHILS % (AUTO) 0.3 % (0-6); HEMATOCRIT 42.2 % (35.0-45.0); HEMOGLOBIN 14.1 g/dl (12.0-16.0); LYMPHOCYTES # (AUTO) 1.1 X10'3 (1.1-4.8); LYMPHOCYTES % (AUTO) 8.1 % (21-51); MEAN CORPUSCULAR HEMOGLOBIN 30.4 PG (27.0-31.0); MEAN CORPUSCULAR HGB CONC 33.4 g/dL (33.0-36.5); MEAN CORPUSCULAR VOLUME 90.9 FL (78-98); MEAN PLATELET VOLUME 7.6 FL (7.4-10.4); MONOCYTES # (AUTO) 0.8 X10'3 (0-0.9); MONOCYTES % (AUTO) 5.9 % (2-12); NEUTROPHILS # (AUTO) 11.6 X10'3 (1.8-7.7); NEUTROPHILS % (AUTO) 85.3 % (42-75); PLATELET COUNT 348 X10'3 (140-440); RED BLOOD COUNT 4.64 X10'6 (4.20-5.60); RED CELL DISTRIBUTION WIDTH 13.6 % (11.5-14.5); WHITE BLOOD COUNT 13.7 X10'3 (4.5-11.0)
[2020-01-31 14:43] LABS: ALANINE AMINOTRANSFERASE 39 U/L (12-78); ALBUMIN 4.1 G/DL (3.4-5.0); ALBUMIN/GLOBULIN RATIO 1.1 (1.1-1.5); ALKALINE PHOSPHATASE 57 IU/L (46-116); ANION GAP 18 (8-16); ASPARTATE AMINO TRANSFERASE 26 U/L (10-37); BILIRUBIN,TOTAL 0.7 MG/DL (0.1-1.0); BLOOD UREA NITROGEN 25 MG/DL (7-18); BUN/CREATININE RATIO 8.3 (6.6-38.0); CALCIUM 9.6 MG/DL (8.5-10.1); CHLORIDE 103 MMOL/L (99-107); CREATININE 3.01 MG/DL (0.40-0.90); GLUCOSE 162 MG/DL (70-104); LIPASE 114 U/L (73-393); POTASSIUM 4.2 MMOL/L (3.5-5.1); SODIUM 137 MMOL/L (135-145); TOTAL CARBON DIOXIDE 16.5 MMOL/L (24-32); TOTAL PROTEIN 7.8 G/DL (6.4-8.2); eGFR 16 ML/MIN
[2020-01-31] MEDS ORDERED: acetaminophen 325mg tablet PO PRN (15:30)
[2020-01-31] MEDS ORDERED: ondansetron/PF 4mg/2ml inj IV PRN (15:30)
[2020-01-31] MEDS ORDERED: magnesium hydroxide 30ml (MOM) UD suspension PO PRN (15:30)
[2020-01-31] MEDS ORDERED: mag hydrox/Alum hydrox/simeth 30ml oral suspension PO PRN (15:30)
--- NOTE | 2020-01-31 15:35 | NUR ---
Patient is now resting comfortably
[2020-01-31] MEDS ORDERED: PANT40TA54 PO (15:37)
[2020-01-31 15:49] LABS: URINE HCG NEGATIVE (NEG)
[2020-01-31 15:50] LABS: CLARITY,URINE CLOUDY (Clear)
[2020-01-31 15:51] LABS: UA COLLECTION TYPE STRAIGHT CATH
[2020-01-31 15:55] LABS: COLOR,URINE AMBER (Yellow)
[2020-01-31] MEDS: normal saline 1000ml 1,000 ML IV SCH (15:57)
[2020-01-31 15:58] LABS: MUCUS STRANDS MODERATE /LPF (Neg); TRANSITIONAL EPI CELLS,URINE MODERATE /HPF
[2020-01-31 16:04] LABS: CELLULAR CAST 0-4 /LPF (NEGATIVE); COARSE GRANULAR CAST 0-3 /LPF (NEGATIVE)
[2020-01-31 16:06] LABS: BACTERIA,URINE 3+ /HPF (Neg)
[2020-01-31 16:11] LABS: RENAL CELLS, URINE MANY /HPF
[2020-01-31 16:12] LABS: SQUAMOUS EPITHELIAL CELL,UR MANY /LPF (FEW)
[2020-01-31] MEDS: proCHLORperazine 10 MG/2 ml inj IV PRN ×2 (16:54→22:43)
--- NOTE | 2020-01-31 18:30 | NUR ---
Collected 80 ml of dark yash urine
--- NOTE | 2020-01-31 18:50 | NUR ---
Patient in room PCU 3025. I have received report from RN in ED and had the opportunity to ask questions and assume patient care.
[2020-01-31 19:10] VITALS: BP 168/89
[2020-01-31] MEDS: pantoprazole 40mg Tablet.DR PO SCH (19:47)
[2020-01-31] MEDS: heparin, porcine 5000 units/ml vial SQ SCH (19:48)
[2020-01-31] MEDS: metFORMIN 500mg tablet PO SCH (19:50)
[2020-01-31 22:00] VITALS: BP 166/89
[2020-01-31] MEDS: morphine 2 MG/ML inj. syringe IV PRN (22:43)
[2020-02-01] MEDS: morphine 2 MG/ML inj. syringe IV PRN ×5 (03:55→22:52)
[2020-02-01] MEDS: normal saline 1000ml 1,000 ML IV SCH ×3 (03:57→22:52)
[2020-02-01 06:00] LABS: BASOPHILS % (AUTO) 0.1 % (0-1); EOSINOPHILS % (AUTO) 0 % (0-6); HEMATOCRIT 33.2 % (35.0-45.0); HEMOGLOBIN 11.2 g/dl (12.0-16.0); LYMPHOCYTES # (AUTO) 1.3 X10'3 (1.1-4.8); MEAN CORPUSCULAR HEMOGLOBIN 30.7 PG (27.0-31.0); MEAN CORPUSCULAR HGB CONC 33.8 g/dL (33.0-36.5); MEAN CORPUSCULAR VOLUME 90.9 FL (78-98); MONOCYTES # (AUTO) 0.8 X10'3 (0-0.9); MONOCYTES % (AUTO) 6.9 % (2-12); NEUTROPHILS # (AUTO) 8.8 X10'3 (1.8-7.7); PLATELET COUNT 281 X10'3 (140-440); RED BLOOD COUNT 3.65 X10'6 (4.20-5.60); RED CELL DISTRIBUTION WIDTH 13.9 % (11.5-14.5); WHITE BLOOD COUNT 10.8 X10'3 (4.5-11.0)
[2020-02-01 06:01] LABS: ALBUMIN 3.2 G/DL (3.4-5.0); ANION GAP 12 (8-16); BLOOD UREA NITROGEN 25 MG/DL (7-18); BUN/CREATININE RATIO 10.2 (6.6-38.0); CALCIUM 7.8 MG/DL (8.5-10.1); CHLORIDE 106 MMOL/L (99-107); CREATININE 2.45 MG/DL (0.40-0.90); GLUCOSE 119 MG/DL (70-104); POTASSIUM 3.9 MMOL/L (3.5-5.1); SODIUM 139 MMOL/L (135-145); TOTAL CARBON DIOXIDE 21.4 MMOL/L (24-32); eGFR 21 ML/MIN
--- NOTE | 2020-02-01 06:12 | NUR ---
Problems reprioritized. Patient report given, questions answered & plan of care reviewed with ROMA Goncalves.
--- NOTE | 2020-02-01 06:50 | NUR ---
Patient in room PCU 3025. I have received report from Kalyani BRANDON and had the opportunity to ask questions and assume patient care.
[2020-02-01 07:00] VITALS: BP 132/89
[2020-02-01] MEDS: topiramate 25mg tablet PO SCH (07:43)
[2020-02-01] MEDS: heparin, porcine 5000 units/ml vial SQ SCH ×2 (07:43→19:42)
[2020-02-01] MEDS: pantoprazole 40mg Tablet.DR PO SCH ×2 (07:44→19:41)
[2020-02-01] MEDS: ESCITALOPRAM OXALATE 5 MG TABLET PO SCH (07:44)
[2020-02-01] MEDS: metFORMIN 500mg tablet PO SCH ×2 (07:47→19:44)
[2020-02-01 11:00] VITALS: BP 113/73
[2020-02-01] MEDS: CefTRIAXone/D5W-Rocephin 1gm 50 ML IV SCH (11:36)
--- NOTE | 2020-02-01 14:44 | NUR ---
Burk catheter was taken out. Anew Burk cath was inserted at 1430 on 02/01/20
[2020-02-01 15:00] VITALS: BP 116/51
[2020-02-01 18:00] VITALS: BP 131/80
--- NOTE | 2020-02-01 18:00 | NUR ---
PT C/O VERDUZCO LEAKING, THIS IS THE SECOND ONE PUT TODAY. SHE DOESNT UNDERSTAND WHY SHE HAS IT TO BEGIN WITH. PRIMARY RN NOTIFIED, PAGED REGARDING THE MATTER. NEW ORDER GIVEN BY OVER THE PHONE, MARISA VERDUZCO PER PROTOCOL.
--- NOTE | 2020-02-01 18:30 | NUR ---
Patient in room PCU 3025. I have received report from ROMA VALERO and had the opportunity to ask questions and assume patient care.
--- NOTE | 2020-02-01 18:52 | NUR ---
Burk removed at 1830.
--- NOTE | 2020-02-01 18:54 | NUR ---
Problems reprioritized. Patient report given, questions answered & plan of care reviewed with Gianna BRANDON.
[2020-02-01 19:12] LABS: HEMOGLOBIN A1C 5.6 % (4.5-6.2)
[2020-02-01 22:00] VITALS: BP 114/70
--- NOTE | 2020-02-01 22:19 | NUR ---
MESSAGE: [id number] TONIA ALONSO 50 HERE FOR ARF, UTI. HAS BACK AND FLANK PAIN. PT GETS MORPHINE 1MG Q4H ORDERED BUT DOESN'T LAST. CAN SHE HAVE SOMETHING ELSE? THANK YOU. FROM [id number]
[2020-02-02] MEDS: morphine 2 MG/ML inj. syringe IV PRN ×2 (01:56→07:31)
[2020-02-02 02:00] VITALS: BP 107/65
[2020-02-02 05:17] LABS: ANION GAP 8 (8-16); BASOPHILS % (AUTO) 0.4 % (0-1); BLOOD UREA NITROGEN 16 MG/DL (7-18); BUN/CREATININE RATIO 10.5 (6.6-38.0); CALCIUM 7.9 MG/DL (8.5-10.1); CHLORIDE 111 MMOL/L (99-107); CREATININE 1.53 MG/DL (0.40-0.90); EOSINOPHILS # (AUTO) 0.3 X10'3 (0-0.9); EOSINOPHILS % (AUTO) 2.9 % (0-6); GLUCOSE 89 MG/DL (70-104); HEMATOCRIT 31.5 % (35.0-45.0); HEMOGLOBIN 10.7 g/dl (12.0-16.0); LYMPHOCYTES # (AUTO) 2.2 X10'3 (1.1-4.8); LYMPHOCYTES % (AUTO) 25.6 % (21-51); MEAN CORPUSCULAR HEMOGLOBIN 31.3 PG (27.0-31.0); MEAN CORPUSCULAR HGB CONC 33.9 g/dL (33.0-36.5); MEAN CORPUSCULAR VOLUME 92.3 FL (78-98); MONOCYTES # (AUTO) 0.7 X10'3 (0-0.9); MONOCYTES % (AUTO) 8.4 % (2-12); NEUTROPHILS # (AUTO) 5.5 X10'3 (1.8-7.7); NEUTROPHILS % (AUTO) 62.7 % (42-75); PLATELET COUNT 269 X10'3 (140-440); POTASSIUM 3.4 MMOL/L (3.5-5.1); RED BLOOD COUNT 3.42 X10'6 (4.20-5.60); RED CELL DISTRIBUTION WIDTH 14.1 % (11.5-14.5); SODIUM 143 MMOL/L (135-145); TOTAL CARBON DIOXIDE 23.6 MMOL/L (24-32); WHITE BLOOD COUNT 8.7 X10'3 (4.5-11.0); eGFR 36 ML/MIN
[2020-02-02 06:00] VITALS: BP 124/80
--- NOTE | 2020-02-02 06:23 | NUR ---
Patient in room PCU 3025. I have received report from Agustín BRANDON and had the opportunity to ask questions and assume patient care.
[2020-02-02] MEDS: pantoprazole 40mg Tablet.DR PO SCH (07:21)
[2020-02-02] MEDS: CefTRIAXone/D5W-Rocephin 1gm 50 ML IV SCH (07:21)
[2020-02-02] MEDS: ESCITALOPRAM OXALATE 5 MG TABLET PO SCH (07:21)
[2020-02-02] MEDS: topiramate 25mg tablet PO SCH (07:21)
[2020-02-02] MEDS: heparin, porcine 5000 units/ml vial SQ SCH (07:22)
[2020-02-02] MEDS: metFORMIN 500mg tablet PO SCH (07:28)
[2020-02-02] MEDS: normal saline 1000ml 1,000 ML IV SCH (07:31)
[2020-02-02] MEDS ORDERED: magnesium 4gm in 100ml NS 100 ML IV PRN (10:05)
[2020-02-02] MEDS ORDERED: potassium Cl 20 mEq SR tablet PO PRN ×2 (10:05)
[2020-02-02] MEDS ORDERED: magnesium Cl slow-release 64mg tablet PO PRN (10:05)
[2020-02-02] MEDS ORDERED: potassium CL 10mEq/100ml bag 100 ML IV PRN (10:05)
--- NOTE | 2020-02-02 10:10 | NUR ---
DM consult, A1c is 5.6%, DM education is not indicated at this time. Addendum: 02/02/20 at [address] Amended: Links added.
[2020-02-02] MEDS ORDERED: CIPR-230 PO (10:48)
[2020-02-02 11:00] VITALS: BP 128/73
[2020-02-02 11:19] LABS: ALBUMIN 3.1 G/DL (3.4-5.0); ANION GAP 9 (8-16); BLOOD UREA NITROGEN 15 MG/DL (7-18); BUN/CREATININE RATIO 10.3 (6.6-38.0); CHLORIDE 107 MMOL/L (99-107); CREATININE 1.46 MG/DL (0.40-0.90); GLUCOSE 92 MG/DL (70-104); POTASSIUM 3.6 MMOL/L (3.5-5.1); SODIUM 139 MMOL/L (135-145); TOTAL CARBON DIOXIDE 23.3 MMOL/L (24-32); eGFR 38 ML/MIN
--- NOTE | 2020-02-02 11:57 | NUR ---
Stable for discharge per MD order, all discharge instructions reviewed with the patient and all questions answered, new prescription sent to [facility] in [place], pt educated on new medication and when to call 911/go into ER, educated to f/u with PCP YAZMIN, pt stated she has an appointment with her Bjorn MD in two days, PIV and tele monitor discontinued, all belongings collected and sent with the patient, left the unit at 1157 in wheelchair with nurses aide to meet her down stairs.
[2020-02-02] MEDS ORDERED: K and/or MAG REPLACEMENT MC SCH (20:00)
== END 2020-02-02 11:56 | disposition home or self-care (01) | DRG 689 ==
LOC: ER 14:00 → ED HOLD 15:28 → PCU 3S 19:00
PROVIDERS: ADMIT Family Medicine; ATTEND Family Medicine
DX: N39.0 Urinary tract infection, site not specified (principal); N17.0 Acute kidney failure with tubular necrosis; E11.9 Type 2 diabetes mellitus without complications; K21.9 Gastro-esophageal reflux disease without esophagitis; G89.29 Other chronic pain; M54.9 Dorsalgia, unspecified; F12.90 Cannabis use, unspecified, uncomplicated; D72.829 Elevated white blood cell count, unspecified; B96.1 Klebsiella pneumoniae [K. pneumoniae] as the cause of diseases classified elsewhere; G40.909 Epilepsy, unspecified, not intractable, without status epilepticus; F32.9 Major depressive disorder, single episode, unspecified; Z90.49 Acquired absence of other specified parts of digestive tract; Z88.0 Allergy status to penicillin; Z88.5 Allergy status to narcotic agent; Z88.2 Allergy status to sulfonamides; Z80.3 Family history of malignant neoplasm of breast
CPT/HCPCS: 36415; 71045; 80048; 80053; 81001; 81025; 83036; 83690; 84484; 85025; 87077; 87081; 87088; 87186; 93005; 96372; 96374; 96375; 99285; G0378; J0696; J0780; J1200; J1630; J1644; J2060; J2270; J7030